=== PATIENT | male | born 1935 | race Caucasian/White ===

== ENCOUNTER 2018-08-12 13:55 | Emergency (ER) | payer MEDICARE, BC ==
[~2018-08-12] VITALS: Ht 162.6 cm; Wt 68.6 kg
--- NOTE | 2018-08-12 14:02 | NUR ---
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 MOVING NECK WITHOUT DIFFICULTY.
--- NOTE | 2018-08-12 14:34 | NUR ---
DENIES NEED FOR PAIN MEDICINE. STATES HE TOOK A MOTRIN GARAGE HAND.
[2018-08-12 14:55] VITALS: BP 137/58
[2018-08-12] MEDS ORDERED: BACITRACIN ZINC OINT 500U/GM, 0.9 GM ONE (14:58)
--- NOTE | 2018-08-12 15:03 | NUR ---
SKIN TEAR TO R ELBOW CLEANED; ABX OINTMENT AND TEGADERM APPLIED
[2018-08-12] MEDS ORDERED: HYDROcodone/APAP 5/325 TABLET ONE (15:09)
[2018-08-12] MEDS ORDERED: HYDROcodone/APAP 5/325 TABLET PO ONE (15:30)
== END 2018-08-12 16:01 | disposition home or self-care (01) ==
LOC: ED 15:55
DX: S22.41XA Multiple fractures of ribs, right side, initial encounter for closed fracture (principal); S09.90XA Unspecified injury of head, initial encounter; M54.2 Cervicalgia; Z95.1 Presence of aortocoronary bypass graft; V27.4XXA Motorcycle driver injured in collision with fixed or stationary object in traffic accident, initial encounter; Y93.89 Activity, other specified; Y92.89 Other specified places as the place of occurrence of the external cause; Y99.8 Other external cause status
CPT/HCPCS: 70450; 71250; 99284